=== PATIENT | male | born 1980 | race Caucasian/White ===

== ENCOUNTER 2016-10-31 13:05 | Emergency (ER) | payer BC, OTHER ==
[~2016-10-31] VITALS: Ht 177.8 cm; Wt 106.0 kg
[~2016-10-31 13:05] MED LIST: Z.0.NO CURRENT MEDS
[2016-10-31 13:06] VITALS: BP 128/93; PULSE 86; RESP 20; TEMP 98.2; O2SAT 99
--- NOTE | 2016-10-31 13:21 | PD ---
HPI Chief Complaint: Skin Problem Time Seen by Provider: 13:17 Travel History International Travel<30 days: No Contact w/Intl Traveler<30days: No Traveled to known affect area: No History of Present Illness HPI 36-year-old male presents to the ED for evaluation 3 week history of rash around bilateral ankles, leg and gluteal cleft. Patient endorses pruritus. He treated with hydrocortisone cream with some improvement of the rash. He denies fever, chills. States that he has otherwise been feeling well. The patient is a senior construction manager, works in heavy boots daily. He denies chronic health problems, takes no daily medications. NKDA. PFSH Past Medical History Arthritis: Yes (OSTEO) Diminished Hearing: No Musculoskeletal: Yes (BACK PROBLEMS) ?: Not Social History Alcohol Use: No Tobacco Use: Yes (1/2 PPD) Substance Use: No Allergies-Medications (Allergen,Severity, Reaction): Coded Allergies: No Known Allergies (Verified , 10/31/16) Reported Meds & Prescriptions Reported Meds & Active Scripts Active Lotrimin AF Topical Powder (Miconazole Topical Powder) 2 % Pow 1 Applic TOPICAL BID 30 Days Review of Systems Except as stated in HPI: all other systems reviewed are Neg Physical Exam Narrative GENERAL: Well-nourished, well-developed white male in no acute distress SKIN: Focused skin assessment warm/dry. There is a vesicobullous eruption around the ankles and interdigits of the bilateral feet. Skin between the fourth and fifth toes is macerated bilaterally. There are scattered excoriations. There are similar lesions of the bilateral hands and the left elbow. Consistent with tinea corporus. HEAD: Normocephalic. EYES: No scleral icterus. No injection or drainage. NECK: Supple, trachea midline. No JVD or lymphadenopathy. CARDIOVASCULAR: Regular rate and rhythm without murmurs, gallops, or rubs. RESPIRATORY: Breath sounds equal bilaterally. No accessory muscle use. GASTROINTESTINAL: Abdomen soft, non-tender, nondistended. MUSCULOSKELETAL: No cyanosis, or edema. BACK: Nontender without obvious deformity. No CVA tenderness. Data Data Last Documented VS Vital Signs Date Time Temp Pulse Resp B/P Pulse Ox O2 Delivery O2 Flow Rate FiO2 10/31/16 13:06 98.2 86 20 128/93 99 MDM Medical Decision Making Medical Screen Exam Complete: Yes Emergency Medical Condition: Yes Differential Diagnosis Tinea pedis versus tinea corporis versus candidiasis versus other Narrative Course 36-year-old male presents to the ED for evaluation 3 week history of rash around bilateral ankles, leg and gluteal cleft. Patient endorses pruritus. He treated with hydrocortisone cream with some improvement of the rash. He denies fever, chills. States that he has otherwise been feeling well. The patient is a senior construction manager, works in heavy boots daily. Vitals reviewed. Physical exam reveals a vesicobullous eruption around the ankles and interdigits of the bilateral feet. Skin between the fourth and fifth toes is mildly macerated bilaterally. There are scattered excoriations. There are similar lesions of the bilateral hands and the left elbow. Consistent with tinea pedis. Patient was prescribed miconazole topical powder twice a day 30 days. He is instructed to change his socks at lunchtime daily, keep his feet clean and dry. He indicated understanding of instructions and is agreeable to the plan. He stable and discharged home. Diagnosis Primary Impression: Tinea pedis Qualified Code: B35.3 - Tinea pedis of both feet Additional Impression: Tinea corporis Referrals: Operations Staff Specialist Security Maintenance Service Technician Patient Instructions: General Instructions, Tinea Pedis (ED) Additional Instructions: Keep the affected areas clean and dry. Apply aerosol powder to affected areas twice per day. Consider changing your socks at lunchtime daily to aid with healing. Follow-up with the transmission builder or the senior talent management consultant. Return to the ED for any urgent or emergent medical condition. Med/Other Pt SpecificInfo: Prescription(s) given Scripts Miconazole Topical Powder (Lotrimin AF Topical Powder)2 % Pow1 Applic TOPICAL BID 30 Days Ref 0 Prov:Malissa Friend MD 10/31/16 Disposition: 01 DISCHARGE HOME Condition: Stable Mally Cooper Oct 31, 2016 13:21
[2016-10-31] MEDS ORDERED: MICO1POW7 TOPICAL (13:23)
== END 2016-10-31 13:34 | disposition home or self-care (01) ==
LOC: PHEFT 13:05
DX: B35.3 Tinea pedis (principal); M19.90 Unspecified osteoarthritis, unspecified site; F17.210 Nicotine dependence, cigarettes, uncomplicated
CPT/HCPCS: 99282